=== PATIENT | female | born 1940 | race Caucasian/White ===

== ENCOUNTER → 2016-06-10 | Outpatient (CLI) | payer OTHER, BC ==
--- NOTE | 2016-06-10 11:38 | DX ---
DEXA Bone Mineral Densitometry Clinical Indications: Postmenopausal, screening for osteoporosis Comparison: June 25, 2011 Technique: Bone Mineral Densitometry (BMD) by Dual Energy X-Ray Absorptiometry (DEXA) was performed utilizing the FAMOCO scanner. The lumbar spine was evaluated in the AP projection. The bilat eral hips and forearm were evaluated in the AP projection. Vertebral fracture assessment was also pe rformed. AP Lumbar Spine: The L1, L2, L3 and L4 vertebral bodies were evaluated. BMD: 1.118 gm/cm2 T-score: -0.6 SD Z-score: 0.5 SD Significantly increased by 4.7% .This may be related to degenerative spurring in the lumbar spine. AP Left Hip: Total BMD: 0.858 gm/cm2 T-score: -1.2 SD Z-score: 0.1 SD No significant change. AP Right Hip: Total BMD: 0.833 gm/cm2 T-score: -1.4 SD Z-score: 0.1 SD Significantly decreased by 4.5% AP Left Forearm, 05/13: BMD: 0.656 gm/cm2 T-score: -2.5 SD Z-score: -0.3 SD Decreased by 6.4% Vertebral Fracture Assessment: No significant fracture deformity. Degenerative spurring in the lumba r spine likely increases lumbar BMD. Conclusion: Considering the lowest measured site, the patient is now osteoporotic in the forearm and at increased risk for fracture. The ten year FRAX risk for any major osteoporotic fracture , which excludes the risk for a wrist frac ture, is 10.5% and for a hip fracture is 2%. Since the forearm is the lowest measured site, it would be worthwhile to exclude hyperparathyroidism or a reason for disuse osteoporosis in the left upper extremity. To prevent osteoporosis and to promote the patient's bone density, the following recommendations shou ld be considered: 1. Pursue a regular regimen of weightbearing and muscle strengthening exercises in order to reduce t he risk of falls and fractures (as tolerated by the patient's general medical condition). 2. Ensure that daily dietary calcium uptake is maximized. 3. Consider checking the serum vitamin D level. Ensure that intake of vitamin D is 800 IU per day (f or ages 71 and older). 4. Consider pharmacologic intervention with follow-up DEXA scan in in one year to assess the efficac y of intervention versus follow-up DEXA scan in two years to reassess the rate of bone loss in this patient.
== END ==
LOC: FIMAGING 09:38
PROVIDERS: ATTEND Midwife
DX: Z13.820 Encounter for screening for osteoporosis (principal); M81.0 Age-related osteoporosis without current pathological fracture

== ENCOUNTER → 2016-06-26 | Outpatient (CLI) | payer OTHER, BC ==
[~2016-06-26] MED LIST: IOPAMIDOL (ISOVUE 370) 100 ML BTL IV ONE
== END ==
LOC: FIMAGING 07:41
PROVIDERS: ATTEND Internal Medicine
DX: I72.8 Aneurysm of other specified arteries (principal)
CPT/HCPCS: 74174; Q9967

== ENCOUNTER → 2016-08-06 | Outpatient (CLI) | payer OTHER, BC | LOC: FIMAGING 09:02 | PROVIDERS: ATTEND Obstetrics & Gynecology | DX: N64.4 Mastodynia (principal) | CPT/HCPCS: G0206 ==

== ENCOUNTER → 2017-02-12 | Outpatient (CLI) | payer OTHER, BC | LOC: BMCIMAGING 13:46 | PROVIDERS: ATTEND Internal Medicine | DX: M51.36 Other intervertebral disc degeneration, lumbar region (principal); M46.96 Unspecified inflammatory spondylopathy, lumbar region; I72.8 Aneurysm of other specified arteries ==

== ENCOUNTER 2017-02-14 15:56 | Emergency (ER) | payer OTHER, BC ==
[2017-02-14 16:08] VITALS: O2SAT 94
--- NOTE | 2017-02-14 16:38 | EDPHY ---
H & P Stated Complaint: slipped/mechanical fall onto L lower back > L lower back pain Source: Patient Exam Limitations: No limitations - Personal History Current Tetanus/Diphtheria Vaccine: Yes Current Tetanus Diphtheria and Acellular Pertussis (TDAP): Yes Tetanus Vaccine Date: 2010 - Medical/Surgical History Hx Asthma: No Hx Chronic Respiratory Disease: No Hx Diabetes: No Hx Cardiac Disease: No Hx Renal Disease: No Hx Cirrhosis: No Hx Alcoholism: No Hx HIV/AIDS: No Hx Splenectomy or Spleen Trauma: No Other PMH: anxiety, depression, CHI. PSH--ORTHO - Social History Smoking Status: Never smoked HPI/ROS: CHIEF COMPLAINT: Pelvic pain HISTORY OF PRESENT ILLNESS: The patient is a 76-year-old female presenting with right pelvic pain after a mechanical fall yesterday morning. She has a history of osteoporosis on Fosamax. The patient was at a work out class, she tried to get up using a roller and slipped. Since the fall, the patient has difficulty with ambulating secondary to pain. She has to use walking poles, but continues to have pain. The patient saw her PCP, Dr. Givens yesterday, he ordered x-rays of her lumbar spine. She had a massage yesterday which seemed to slightly improve her pain. She took Oxycodone yesterday which did not improve her pain. She denies further injuries. REVIEW OF SYSTEMS: A ten point review of systems was performed and is negative with the exception of the items mentioned in the HPI. Past medical history: Denies. Past surgical history: Denies. Family history: Noncontributory. Social history: , at bedside. General Appearance: Alert. Vital signs reviewed. BP 166/47. Eyes: Pupils equal and round, no conjunctival injection, no discharge. Anicteric. ENT, Mouth: Mucous membranes are moist, no oropharyngeal erythema or edema. Neck: No lymphadenopathy, supple. Respiratory: Lungs are clear to auscultation; no wheezes, rales, or rhonchi. Cardiovascular: Regular rate and rhythm; no murmur, rub, or gallop. Gastrointestinal: Abdomen is soft and nontender, no masses or organomegaly, bowel sounds normal. Skin: Warm and dry, no rashes on exposed skin, normal color. Back: Nontender to palpation over the thoracolumbar spine. No CVAT. Tender to palpation of right lumbar paraspinous muscles and buttock. Extremities: No lower extremity edema, no calf tenderness or swelling. Pelvis: Some tenderness to palpation of right anterior pelvis. Neurological: Alert and oriented. Strength is 5 over 5 BLE with testing of all major motor groups. Sensation is intact to light touch over all 4 extremities. Psychiatric: Normal affect. (Dafne Case) Constitutional: Initial Vital Signs Temperature (C) 36.5 C 02/14/17 16:05 Heart Rate 76 02/14/17 16:05 Respiratory Rate 18 02/14/17 16:05 Blood Pressure 166/47 H 02/14/17 16:05 O2 Sat (%) 94 02/14/17 16:05 O2 Delivery Mode Room Air Allergies/Adverse Reactions: Sulfa (Sulfonamide Antibiotics) Adverse Reaction (Verified 02/14/17 16:04) nausea Home Medications: Medication Instructions Recorded Abilify Unk Dose 07/08/13 Adderall Unk Dose 07/08/13 Lamictal Unk Dose 07/08/13 Zoloft Unk Dose 07/08/13 Cyclobenzaprine [Flexeril 10 MG 10 mg PO TID PRN #10 tab 02/14/17 (*)] Medical Decision Making - Diagnostics Imaging: Discussed imaging studies w/ call center recruiter Radiologist, I viewed and interpreted images myself ED Course/Re-evaluation: 1927: CT results called to me from Dr. Jara. CT pelvis without contrast due to hip pain and unable to walk. This is unremarkable CT scan. 1941: Patient was able to ambulate well with a walker. She is agreeable going home. Return precautions given. Comfortable this plan. (Mark Scales) The patient presents with right pelvic pain after a mechanical fall yesterday morning. She is able to localize her pain to a single region above the right buttock. She saw Dr. Givens yesterday and had lumbar spine x-rays. I viewed the reports of these images, degenerative changes seen, no fracture. I ordered pelvis x-rays. The patient received 400mg Ibuprofen. Pelvic x-ray does not show fracture. Re-evaluated at 5:30 p.m.. She feels slightly better but still with pain. However, when she attempts to ambulate she is unable to bear weight on her right leg. Re-evaluated lumbar spine. She has no pain with palpation over the spine. I doubt that she has a spinal vertebral fracture. Will CT scan her pelvis to look for an occult fracture. She has been offered pain medicine other than anti-inflammatories and Tylenol but has refused. She tried an oxycodone this morning and does not want to take an opiate pain medication. She might agree to tramadol. Care transferred to Dr. Scales--awaiting CT of pelvis. (Dafne Case) Differential Diagnosis: I considered a ddx of fracture (lumbar spine or pelvis/hip), musculoskeletal pain secondary to degenerative disease, HNP with radiculopathy, UTI/ pyelonephritis, ureterolithiasis, discitis. (Dafne Case) - Data Points Medications Given: Discontinued Medications Acetaminophen (Tylenol) 650 mg PO EDNOW ONE Stop: 02/14/17 17:45 Last Admin: 02/14/17 17:54 Dose: 650 mg Ibuprofen (Motrin) 400 mg PO EDNOW ONE Stop: 02/14/17 16:52 Last Admin: 02/14/17 17:11 Dose: 400 mg Departure - Departure Disposition: Home, Routine, Self-Care Clinical Impression: Pelvic pain Condition: Good Instructions: Pelvic Pain (ED) Additional Instructions: We recommend Acetaminophen (Tylenol) and Ibuprofen (Motrin,Advil) for pain control. When pain is severe, both drugs can be used at the same time, but at different intervals. Please note the time differences. Your dose is: Acetaminophen 650mg every 4 to 6 hours Ibuprofen 600mg every 6 to 8 hours with food. Note: do not take Acetaminophen with Hydrocodone (Vicodin, Lortab) or Oxycodone (Percocet). These medications also contain Acetaminophen. No more than 3000mg of Acetaminophen should be taken in 24 hours (for an adult). Referrals: Sumit Givens MD [Primary Care Provider] - As per Instructions Prescriptions: Cyclobenzaprine [Flexeril 10 MG (*)] 10 mg PO TID PRN #10 tab PRN Reason: Spasms Report Scribed for: Dafne Case Report Scribed by: Kimmy Chambers Date of Report: 02/14/17 Time of Report: 16:47 Physician Review and Approval Statement: 02/14/17 16:38 Portions of this note were transcribed by the regional medical director. I, Dr. Dafne Case, personally performed the history, physical exam, and medical decision- making; and confirmed the accuracy of the information in the transcribed note. ( Dafne Case)
[2017-02-14] MEDS ORDERED: IBUPROFEN 200 MG TAB PO ONE (16:51)
[2017-02-14] MEDS ORDERED: ACETAMINOPHEN 325 MG TAB PO ONE (17:44)
[2017-02-14 20:05] VITALS: BP 128/89; PULSE 72; RESP 15; TEMP 98.8
== END 2017-02-14 20:05 | disposition home or self-care (01) ==
DX: R10.2 Pelvic and perineal pain (principal)

== ENCOUNTER 2017-07-03 11:39 | Emergency (ER) | payer OTHER, BC ==
[2017-07-03 11:46] VITALS: RESP 16; TEMP 97.9
[2017-07-03] MEDS ORDERED: ACETAMINOPHEN 325 MG TAB PO ONE (13:07)
--- NOTE | 2017-07-03 13:12 | EDPHY ---
H & P Time Seen by Provider: 07/03/17 13:00 HPI/ROS: CHIEF COMPLAINT: Head injury HISTORY OF PRESENT ILLNESS: Slipped on ice 30 min prior to arrival outside [employer]. Hit her left side of her forehead on the ground and drove herself to the hospital. Complains of left-sided headache but no neck pain or weakness or numbness in extremities, no double vision, no vertigo. Did not have syncope or loss consciousness. Pain is all the left forehead right where she contacted the ground. Not associated with vomiting, does not radiate. Symptoms are moderate. REVIEW OF SYSTEMS: Eye: no change in vision ENT: no sore throat Cardiac: no chest pain or syncope Pulmonary: no cough or SOB Abdomen: no vomiting, diarrhea, abdominal pain Musculoskeletal: No back or neck pain Skin: Left forehead abrasion Neuro: Moderate headache Constitutional: no fever : no urinary symptoms A comprehensive 10 point review of systems is otherwise negative aside from elements mentioned in the history of present illness. PAST MEDICAL HISTORY: Anxiety depression head injury Social history: [facility] patient General Appearance: Alert and conversant, cooperative. Eyes: No scleral icterus. Pupils equal round reactive extraocular motion intact, bruising over the left forehead just above the left eyebrow. ENT, Mouth: Normal mucous membranes. Respiratory: Normal respiratory effort, breath sounds equal, lungs are clear to auscultation. Cardiovascular: Regular rate and rhythm. Gastrointestinal: Abdomen is soft and non tender. Neurological: Alert, face symmetric, normal motor and sensory in extremities. Ambulatory not ataxic Skin: Left forehead abrasion Musculoskeletal: No spinal tenderness or extremity tenderness Psychiatric: Not agitated. Emergency Department course/MDM: Ambulatory to the bathroom. Oral acetaminophen, head and cervical spine CT ordered for head trauma with age 77. Discussed head and cervical spine CT with Aiyana at 1400, clinically cleared , stable for discharge Smoking Status: Never smoked Constitutional: Initial Vital Signs Temperature (C) 36.6 C 07/03/17 11:43 Heart Rate 76 07/03/17 11:43 Respiratory Rate 16 07/03/17 11:43 Blood Pressure 132/59 H 07/03/17 11:43 O2 Sat (%) 97 07/03/17 11:43 O2 Delivery Mode Room Air Allergies/Adverse Reactions: Sulfa (Sulfonamide Antibiotics) Adverse Reaction (Verified 02/14/17 16:04) nausea Home Medications: Medication Instructions Recorded Abilify Unk Dose 07/08/13 Adderall Unk Dose 07/08/13 Lamictal Unk Dose 07/08/13 Zoloft Unk Dose 07/08/13 Aspirin 07/03/17 Medical Decision Making - Diagnostics Imaging Results: Imaging Impressions Cervical Spine CT 07/03/17 13:07 Impression: 1. No acute posttraumatic abnormality identified. If there is persistent pain or neurologic deficit, consider MRI and/or flexion and extension views if clinically indicated. 2. Multilevel degenerative change, as above. Findings discussed with Dr. Yosef Lyman on 07/03/2017 at 13:56. Head CT 07/03/17 13:07 Impression: 1. No acute intracranial findings. 2. Diffuse cerebral atrophy with periventricular and subcortical low attenuation consistent with chronic microvascular ischemic gliosis. Negative head and C-spine CT. Imaging: Discussed imaging studies w/ inbound call center representative Radiologist, I viewed and interpreted images myself Differential Diagnosis: Differential diagnosis considered for head injury including but not limited to concussion, skull fracture, intraparenchymal contusion, subarachnoid, subdural and epidural hematoma. - Data Points Medications Given: Discontinued Medications Acetaminophen (Tylenol) 650 mg PO EDNOW ONE Stop: 07/03/17 13:08 Last Admin: 07/03/17 13:29 Dose: 650 mg Departure - Departure Disposition: Home, Routine, Self-Care Clinical Impression: Contusion of forehead Qualifiers: Encounter type: initial encounter Qualified Code(s): S00.83XA - Contusion of other part of head, initial encounter Condition: Good Instructions: Head Injury (ED) Referrals: Sumit Givens MD [Primary Care Provider] - As per Instructions
[2017-07-03 14:20] VITALS: BP 135/71; PULSE 70; O2SAT 95
== END 2017-07-03 14:19 | disposition home or self-care (01) ==
DX: S00.83XA Contusion of other part of head, initial encounter (principal); W22.8XXA Striking against or struck by other objects, initial encounter

== ENCOUNTER 2017-07-15 13:05 | Emergency (ER) | payer OTHER, BC ==
--- NOTE | 2017-07-15 13:54 | EDPHY ---
H & P Stated Complaint: tripped /fell hitting l head and hip/denies loc or neck pain Time Seen by Provider: 07/15/17 13:53 HPI/ROS: HPI: This is a 77-year-old female who presents with Chief Complaint: tripped /fell hitting l head and hip/denies loc or neck pain Location: Left congregation, left hip Quality: Injury Duration: Prior to arrival Signs and Symptoms: No bleeding, no radiation, no numbness, no weakness, no tingling, no incontinence, no decreased range of motion, no swelling, + pain Timing: Acute Severity: Moderate Context: Patient was walking in the house, when she turned from 1 room to the other and tripped over her feet. was a witnessed and reports that she fell directly on her left side; hitting her left hip and the left congregation area of her head. Patient remembers the entire injury and did not lose consciousness. had to help her up off of the floor. Patient reports that she had sudden onset of moderate dizziness since hitting her head. She reports that she fell 3 weeks ago on the ice and hit her head at that time and the this time the dizziness is worse. Denies neck pain/dizziness/nausea/vomiting /amnesia/abdominal pain. Takes baby aspirin daily. Last tetanus booster given 2010. Patient urinating without difficulty. She is able to move her left leg but notes tenderness directly over the lateral aspect of her head. Patient had an MRI brain approximately 1 week ago which showed a " bruise" per patient. Modifying Factors: None Comment: ROS: see HPI Constitutional: No fever, no chills, no weight loss Eyes: No blurred vision Respiratory: No shortness of breath, no cough Cardiovascular: No chest pain Gastrointestinal: No nausea, no vomiting no diarrhea Genitourinary: No dysuria Extremities: No myalgias Neurologic: No weakness, no numbness Skin: No rashes Hematologic: No bruising, no bleeding MEDICAL/SURGICAL/SOCIAL HISTORY: Medical history: Severity, depression, chi Surgical history: Orthopedic types Social history: . Retired. CONSTITUTIONAL: Extremely pleasant adult white female, at bedside, awake and alert, no obvious distress HEENT: 4 cm contusion noted over left congregation area; and normocephalic, PERRL, EOMI. no globe entrapment, no raccoon eyes. no Alejo signs.Tympanic membranes clear. No tympanic membrane rupture. Nares patent; no septal hematoma. Oropharynx clear, no exudate and moist pink mucosa. No malocclusion. no dental trauma. Airway patent. No lymphadenopathy. NECK: supple, no midline tenderness, flexion 45 degrees, extension 45 degrees, right and left lateral flexion 45 degrees. No meningismus. Cardiovascular: Normal S1/S2, regular rate, regular rhythm, without murmur rub or gallop. PULMONARY/CHEST: Symmetrical and nontender. no crepitus. Clear to auscultation bilaterally. Good air movement. No accessory muscle usage. ABDOMEN: Soft, nondistended, nontender, no ecchymosis, no rebound, no guarding , no peritoneal signs, no masses or organomegaly. No CVAT. PELVIC: no pain with rocking; bilateral hips flexion 125 degrees, extension 30 degrees, with no pain internal rotation and no pain external rotation. BACK: No midline tenderness, no paraspinous spasm, deep tendon reflexes 2/2, no pain with straight leg raise EXTREMITIES: 2/2 pulses, leg lengths equal. Left leg externally rotated. Left HIP: Flexion extension abduction mildly decreased secondary to pain. Mild Pain with internal rotation and external rotation. Moderate tenderness over greater trochanter. Patient able to lift leg off the bed against gravity. no deformities, no clubbing, no cyanosis or edema. NEUROLOGICAL: no focal neuro deficits. GCS 15. SKIN: Warm and dry, no erythema. no rash. Good capillary refill. Source: Patient, Family () Exam Limitations: No limitations - Personal History Current Tetanus/Diphtheria Vaccine: Yes Tetanus Vaccine Date: 2010 - Medical/Surgical History Hx Asthma: No Hx Chronic Respiratory Disease: No Hx Diabetes: No Hx Cardiac Disease: No Hx Renal Disease: No Hx Cirrhosis: No Hx Alcoholism: No Hx HIV/AIDS: No Hx Splenectomy or Spleen Trauma: No Other PMH: anxiety, depression, CHI. PSH--ORTHO - Social History Smoking Status: Never smoked Constitutional: Initial Vital Signs Temperature (C) 36.4 C 07/15/17 13:09 Heart Rate 77 07/15/17 13:09 Respiratory Rate 18 07/15/17 13:09 Blood Pressure 134/110 H 07/15/17 13:09 O2 Sat (%) 96 07/15/17 13:09 O2 Delivery Mode Room Air Allergies/Adverse Reactions: Sulfa (Sulfonamide Antibiotics) Adverse Reaction (Verified 02/14/17 16:04) nausea Home Medications: Medication Instructions Recorded Abilify Unk Dose 07/08/13 Adderall Unk Dose 07/08/13 Lamictal Unk Dose 07/08/13 Zoloft Unk Dose 07/08/13 Aspirin 07/03/17 Meclizine HCl [Meclizine HCl 12.5 12.5 mg PO BID PRN #12 tab 07/15/17 mg (*)] Ondansetron Odt [Zofran Odt 4 mg 4 mg PO Q4 PRN #12 tab 07/15/17 (*)] Medical Decision Making - Diagnostics Imaging Results: Imaging Impressions Head CT 07/15/17 13:59 Impression: 1. Stable mild age-related atrophy. 2. No hemorrhage, mass effect, or definite acute peripheral infarct. 3. Stable mild to moderate nonspecific hypodensities in the white matter of bilateral cerebral hemispheres. Differential diagnosis includes microvascular ischemic disease, post-infectious/post-inflammatory sequela, atypical demyelinating disease, or migraine-related sequela. Small white matter lacunar infarcts may also have this appearance. 4. Soft tissue contusion over the left parietal bone superiorly without fracture. If symptoms worsen, additional imaging may be necessary. Findings discussed with Naheed Madrid PAC at 14:53 hour, 07/15/2017. Hip X-Ray 07/15/17 13:59 Impression: No acute abnormality seen about the pelvis with attention left hip. ED Course/Re-evaluation: Head CT scan due to age greater than 65 years old; dizziness, left hip x-ray and meclizine ordered. Fall accidental nature and witnessed. Vital signs reviewed upon arrival and stable. No neurological deficits. 1454: Called by radiologist, Dr. Izquierdo, who advised head CT scan shows no acute intracranial process; mild soft tissue swelling noted over the left temporal area. Left hip x-ray my read shows no fracture/dislocation Reassessed patient reports that dizziness has resolved and no pain in her left hip. Patient reports that she has a follow-up appointment with Dr. Givens this Thursday. No signs of neurovascular compromise/tenting of skin/compartment syndrome/ extremities and joints examined above and below area of concern and are neurovascularly intact. This patient was seen under the supervision of my secondary supervising physician. I evaluated care for this patient independently. Differential Diagnosis: Head injury including but not limited to concussion, skull fracture, intraparenchymal contusion, subarachnoid, subdural and epidural hematoma. - Data Points Medications Given: Discontinued Medications Meclizine HCl (Meclizine Hcl) 12.5 mg PO EDNOW ONE Stop: 07/15/17 14:00 Last Admin: 07/15/17 14:14 Dose: 12.5 mg Departure - Departure Disposition: Home, Routine, Self-Care Clinical Impression: Contusion of scalp, initial encounter Concussion Qualifiers: Encounter type: initial encounter Loss of consciousness presence/duration: without LOC Qualified Code(s): S06.0X0A - Concussion without loss of consciousness, initial encounter Contusion of left hip Qualifiers: Encounter type: initial encounter Qualified Code(s): S70.02XA - Contusion of left hip, initial encounter Accidental fall Qualifiers: Encounter type: initial encounter Qualified Code(s): W19.XXXA - Unspecified fall, initial encounter Condition: Good Instructions: Concussion (ED), Post Concussion Syndrome (ED), Scalp Contusion in Adults (ED), Hip Contusion (ED) Additional Instructions: Apply ice for 30 minutes at a time; 2-3 times per day for the next 1-2 days. Keep appointment with primary care provider on Thursday. Take meclizine as needed for dizziness and Zofran as needed for nausea and vomiting. Please observe concussion precautions. The x-rays obtained in the emergency department today demonstrate no evidence of an obvious fracture. Sometimes fractures are not obvious on the initial set of x-rays performed in the ED. For this reason, you should have repeat x-rays performed in 7-10 days if you are having any pain exclude the possibility of an occult fracture. Return to the ER immediately if you have progressive headaches, neurologic deficits, gait abnormality, visual disturbance, slurred speech, or any other symptom that concerns you. Referrals: Sumti Givens MD [Primary Care Provider] - 07/17/17 Prescriptions: Meclizine HCl [Meclizine HCl 12.5 mg (*)] 12.5 mg PO BID PRN #12 tab PRN Reason: Dizziness Ondansetron Odt [Zofran Odt 4 mg (*)] 4 mg PO Q4 PRN #12 tab PRN Reason: Nausea/Vomiting, Use 1st
[2017-07-15] MEDS ORDERED: MECLIZINE HCL 25 MG TAB PO ONE (13:59)
[2017-07-15 16:21] VITALS: BP 125/67; PULSE 72; RESP 16; TEMP 97.7; O2SAT 95
== END 2017-07-15 16:21 | disposition home or self-care (01) ==
DX: S06.0X0A Concussion without loss of consciousness, initial encounter (principal); S70.02XA Contusion of left hip, initial encounter; S00.03XA Contusion of scalp, initial encounter; Z79.82 Long term (current) use of aspirin; W01.198A Fall on same level from slipping, tripping and stumbling with subsequent striking against other object, initial encounter; Y92.219 Unspecified school as the place of occurrence of the external cause; Y99.8 Other external cause status; Y93.01 Activity, walking, marching and hiking

== ENCOUNTER → 2017-10-14 | Outpatient (CLI) | payer OTHER, BC | LOC: BMCIMAGING 16:09 | PROVIDERS: ATTEND Internal Medicine | DX: R91.1 Solitary pulmonary nodule (principal); R06.09 Other forms of dyspnea; R05 Cough ==

== ENCOUNTER → 2017-10-16 | Outpatient (CLI) | payer OTHER, BC | LOC: FIMAGING 14:25 | PROVIDERS: ATTEND Internal Medicine | DX: R91.1 Solitary pulmonary nodule (principal) ==

== ENCOUNTER → 2018-05-05 | Outpatient (CLI) | payer OTHER, BC | LOC: FIMAGING 07:49 | PROVIDERS: ATTEND Orthopaedic Surgery | DX: M17.11 Unilateral primary osteoarthritis, right knee (principal); M25.461 Effusion, right knee; M11.261 Other chondrocalcinosis, right knee ==

== ENCOUNTER 2018-05-26 05:50 | Inpatient (IN) | payer OTHER, BC ==
[2018-05-26] MEDS ORDERED: FAMOTIDINE 20 MG TAB PO ONE (06:04)
[2018-05-26] MEDS ORDERED: ceFAZolin 2 GM/DEXTROSE 100 ML IV ONE (06:04)
[2018-05-26] MEDS ORDERED: ACETAMINOPHEN 325 MG TAB PO ONE (06:04)
[2018-05-26] MEDS ORDERED: DEXAMETHASONE 4 MG/ML VIAL IVP ONE (06:04)
[2018-05-26] MEDS ORDERED: LR 1,000 ML IV ONE (06:08)
[2018-05-26] MEDS ORDERED: LIDOCAINE 1% 2 ML INJ ID PRN (06:08)
--- NOTE | 2018-05-26 06:24 | PDHPUP ---
History & Physical Update H&P update statement: This history and physical update is based on an assessment of the patient which was completed after admission or registration (within 24 hours), but prior to the surgery/procedure. H&P update: H&P reviewed & patient examined, no change in patient's condition since H&P completed
[2018-05-26] MEDS ORDERED: TRANEXAMIC ACID 3,000 MG/50 ML BAG IRR ONE (06:41)
--- NOTE | 2018-05-26 06:45 | PDANEPAE ---
ANE History of Present Illness right knee pain, here for R TKA ANE Past Medical History - Cardiovascular History Hx Hypertension: No Hx Arrhythmias: No Hx Chest Pain: No Hx Coronary Artery / Peripheral Vascular Disease: No Hx CHF / Valvular Disease: No Hx Palpitations: No - Pulmonary History Hx COPD: No Hx Asthma/Reactive Airway Disease: No Hx Recent Upper Respiratory Infection: No Hx Oxygen in Use at Home: No Hx Sleep Apnea: Yes Sleep Apnea Screening Result - Last Documented: Positive Pulmonary History Comment: SOB, EMMANUEL uses machine - Neurologic History Hx Cerebrovascular Accident: No Hx Seizures: No Hx Dementia: No - Endocrine History Hx Diabetes: No - Renal History Hx Renal Disorders: No - Liver History Hx Hepatic Disorders: No - Neurological & Psychiatric Hx Hx Neurological and Psychiatric Disorders: Yes Neurological / Psychiatric History Comment: essential tremor. RLS. Bipolar deressive. ADD - Cancer History Hx Cancer: No - Congenital Disorder History Hx Congenital Disorders: No - GI History Hx Gastrointestinal Disorders: No - Other Health History Other Health History: NONE - Chronic Pain History Chronic Pain: No - Surgical History Prior Surgeries: NONE IN LAST 5 YRS. LEFT SHOULDER SX ANE Review of Systems Review of Systems: - Exercise capacity METS (RN): 3 METS ANE Patient History - Allergies Allergies/Adverse Reactions: Sulfa (Sulfonamide Antibiotics) Allergy (Mild, Verified 11/28/17 19:17) nausea - Home Medications Home Medications: Alendronate Sodium [Fosamax 70 MG (*)] 70 mg PO SA@0700 11/28/17 [Last Taken ] Aspirin EC [Aspirin EC 81 mg (*)] 81 mg PO HS 11/28/17 [Last Taken 05/19/18] Calcium Carbonate/Vitamin D3 [Calcium 600-Vit D3 400 Tablet] 1 each PO BID 11/28 [Last Taken 05/19/18] Cholecalciferol Vit D3 [Vitamin D3 (*)] 1,000 units PO DAILY 11/28/17 [Last Taken 05/19/18] Cyanocobalamin [Vitamin B12 (*)] 1,000 mcg PO DAILY 11/28/17 [Last Taken ] Dextroamphetamine/Amphetamine [Adderall 30 mg Tablet] 30 mg PO DAILY 11/28/17 [ Last Taken 11/28/17] Ferrous Sulfate [Ferrous Sulf 325 MG (*)] 325 mg PO DAILY 11/28/17 [Last Taken 05/19/18] Multivitamins [Multivitamin (*)] 1 each PO DAILY 11/28/17 [Last Taken 05/19/18] [place]-3 Fatty Acids [Fish Oil 1000 mg (*)] 1,000 mg PO BID 11/28/17 [Last Taken 05/19/18] Sertraline HCl [Zoloft 100mg (*)] 100 mg PO DAILY 11/28/17 [Last Taken 05/26/18 05:00 100] lamoTRIgine [Lamictal] 200 mg PO DAILY 11/28/17 [Last Taken 05/26/18 05:00] rOPINIRole HCL [Ropinirole HCl] 0.5 mg PO HS 11/28/17 [Last Taken 05/25/18] Budesonide [Rhinocort Allergy] 2 spray NS DAILY 05/05/18 [Last Taken 05/26/18 05 :00] Fexofenadine HCl 180 mg PO DAILY 05/05/18 [Last Taken 05/25/18] Herbals/Supplements -Info Only 1 ea PO DAILY 05/05/18 [Last Taken 05/19/18] Magnesium Oxide [Magnesium Oxide 400 mg (*)] 400 mg PO DAILY 05/05/18 [Last Taken 05/19/18] Melatonin [Melatonin 5 mg] 5 mg PO HS 05/05/18 [Last Taken 05/25/18] Vayacog 1 each PO DAILY 05/05/18 [Last Taken Unknown] - NPO status NPO Since - Liquids (Date): 05/26/18 NPO Since - Liquids (Time): 05:30 NPO Since - Solids (Date): 05/25/18 NPO Since - Solids (Time): 21:00 - Smoking Hx Smoking Status: Never smoked - Family Anes Hx Family Hx Anesthesia Complications: NONE ANE Labs/Vital Signs - Vital Signs Blood Pressure: 115/64 Heart Rate: 77 Respiratory Rate: 12 O2 Sat (%): 95 Height: 158.75 cm Weight: 84.368 kg ANE Physical Exam - Airway Neck exam: FROM Mallampati Score: Class 2 Mouth exam: normal dental/mouth exam - Pulmonary Pulmonary: no respiratory distress, no rales or rhonchi - Cardiovascular Cardiovascular: regular rate and rhythym, no murmur, rub, or gallop - ASA Status ASA Status: II ANE Anesthesia Plan Anesthesia Plan: GA with mask, spinal Total IV Anesthesia: Yes
[2018-05-26] MEDS ORDERED: MIDAZOLAM 2 MG/2 ML VIAL IVP ONE (06:47)
[2018-05-26] MEDS ORDERED: BUPIVACAINE/DEXTROSE 7.5MG/ML 2 ML SPINAL AMP SP ONE (06:57)
[2018-05-26] MEDS ORDERED: LIDOCAINE 2% 100 MG/5 ML SYR ONE (06:57)
[2018-05-26] MEDS ORDERED: fentaNYL 100 MCG/2 ML INJ ONE (06:58)
[2018-05-26] MEDS ORDERED: PROPOFOL/EMULSION 500 MG/50 ML BOTTLE IV ONE (06:58)
[2018-05-26] MEDS ORDERED: PHENYLEPHRINE 10 MG/ML SDV ONE (07:05)
[2018-05-26] MEDS ORDERED: TRANEXAMIC ACID 3,000 MG in NS (SYRINGE) 50 ML IRR ONE (07:15)
[2018-05-26] MEDS ORDERED: ROPIVACAINE 0.2% 80 MG, EPINEPHrine 0.2 MG, KETOROLAC TROMETHAMINE 30 MG in SYRINGE 0 ML IU ONE (07:15)
[2018-05-26] MEDS ORDERED: PROPOFOL 200 MG/20 ML VIAL ONE ×2 (08:14→10:20)
[2018-05-26] MEDS ORDERED: MEPERIDINE 25 MG/0.5 ML AMP IVP PRN (08:28)
[2018-05-26] MEDS ORDERED: PROMETHAZINE HCL 25 MG/ML INJ IVP PRN ×2 (08:28→08:50)
[2018-05-26] MEDS ORDERED: HYDROmorphONE/DILAUDID 2 MG/ML INJ IVP PRN (08:28)
[2018-05-26] MEDS ORDERED: oxyCODONE IR 5 MG TAB PO PRN (08:28)
[2018-05-26] MEDS ORDERED: NALOXONE HCL 0.4 MG/ML INJ IVP PRN (08:28)
[2018-05-26] MEDS ORDERED: ONDANSETRON 4 MG/2 ML VIAL IVP PRN ×2 (08:28→08:50)
[2018-05-26] MEDS ORDERED: DIAZEPAM 5 MG/ML 1 ML SYR IVP PRN (08:28)
[2018-05-26] MEDS ORDERED: ACETAMINOPHEN 500 MG TAB PO PRN (08:28)
[2018-05-26] MEDS ORDERED: LR 500 ML IV PRN (08:28)
[2018-05-26] MEDS ORDERED: fentaNYL 100 MCG/2 ML INJ IVP PRN (08:28)
[2018-05-26] MEDS ORDERED: DIPHENOXYLATE/ATROPINE LOMOTIL 1 TAB PO PRN (08:50)
[2018-05-26] MEDS ORDERED: PROMETHAZINE HCL 25 MG SUPPR PR PRN (08:50)
[2018-05-26] MEDS ORDERED: ONDANSETRON DISINTEGRATING 4 MG TAB PO PRN (08:50)
[2018-05-26] MEDS ORDERED: TEMAZEPAM 15 MG CAP PO PRN (08:50)
[2018-05-26] MEDS ORDERED: METOCLOPRAMIDE 10 MG/2 ML VIAL IVP PRN (08:50)
[2018-05-26] MEDS ORDERED: POLYETHYLENE GLYCOL 3350 17 GM PKT PO PRN (08:50)
[2018-05-26] MEDS ORDERED: diphenhydrAMINE 25 MG CAP PO PRN (08:50)
[2018-05-26] MEDS ORDERED: CYCLOBENZAPRINE 10 MG TAB PO PRN (08:50)
[2018-05-26] MEDS ORDERED: LACTULOSE 20 GM/30 ML UDCUP PO PRN (08:50)
[2018-05-26] MEDS ORDERED: MAGNESIUM HYDROXIDE 30 ML UDCUP PO PRN (08:50)
[2018-05-26] MEDS ORDERED: BISACODYL 10 MG SUPP PR PRN (08:50)
--- NOTE | 2018-05-26 08:50 | POSTOPPROG ---
Post Op Note Date of Operation: 05/26/18 Surgeon: Frances Johnston [employer] T[employer] Officer: jeremie johnston PA-C and Maria C Zepeda PA-C Anesthesiologist: dr. barrett Anesthesia: Spinal, Other (Specify) (adductor canal block) Pre-op Diagnosis: right knee OA Post-op Diagnosis: same Indication: right knee pain Procedure: R TKA robot assisted Findings: severe knee OA Inf/Abcess present in the surg proc area at time of surgery?: No EBL: 50-100
[2018-05-26] MEDS ORDERED: LR 1,000 ML IV SCH (09:00)
[2018-05-26] MEDS: FERROUS SULFATE 325 MG TAB PO SCH (09:42)
[2018-05-26] MEDS: SENNOSIDES/DOCUSATE SODIUM TAB PO SCH ×2 (09:43→20:09)
[2018-05-26] MEDS: SERTRALINE HCL 100 MG TAB PO SCH (09:43)
--- NOTE | 2018-05-26 10:54 | POSTANESTH ---
Post Anesthetic Evaluation Cardiovascular Status: Normal, Stable Respiratory Status: Normal, Stable Level of Consciousness/Mental Status: Can Participate in Eval Pain Control: Adequate, Prn Tx Ordered Nausea/Vomiting Control: Adequate, Prn Tx Ordered Complications Possibly Related to Anesthesia: None Noted (moving bilat LE)
--- NOTE | 2018-05-26 11:01 | PDMN ---
Medical Necessity Medical necessity: [facility] S700 Knee Arthroplasty, Total A-2days: 77 yo s/p R TKA, admit to IP for hx TBI, bipolar, anemia, advanced age and for pain control.
[2018-05-26] MEDS: [UNRECOGNIZED DRUG - REMARK] NS SCH (12:24)
[2018-05-26] MEDS: ACETAMINOPHEN 325 MG TAB PO SCH ×2 (12:31→18:42)
[2018-05-26] MEDS: lamoTRIgine 100 MG TAB PO SCH (12:32)
[2018-05-26] MEDS: oxyCODONE IR 5 MG TAB PO PRN ×2 (12:47→15:11)
[2018-05-26] MEDS: ceFAZolin 2 GM/DEXTROSE 100 ML IV SCH ×2 (15:06→21:30)
[2018-05-26] MEDS: FAMOTIDINE 20 MG TAB PO SCH (20:09)
[2018-05-26] MEDS: ASPIRIN 81 MG CHEWABLE TAB PO SCH (20:09)
[2018-05-27] MEDS: ACETAMINOPHEN 325 MG TAB PO SCH ×2 (00:24→05:30)
[2018-05-27] MEDS: oxyCODONE IR 5 MG TAB PO PRN ×2 (02:57→08:20)
[2018-05-27 07:18] VITALS: BP 128/67
[2018-05-27] MEDS: ASPIRIN 81 MG CHEWABLE TAB PO SCH (08:26)
[2018-05-27] MEDS: SENNOSIDES/DOCUSATE SODIUM TAB PO SCH (08:26)
[2018-05-27] MEDS: lamoTRIgine 100 MG TAB PO SCH (08:26)
[2018-05-27] MEDS: FAMOTIDINE 20 MG TAB PO SCH (08:27)
[2018-05-27] MEDS ORDERED: AMPHETAMINE PO SCH (09:00)
[2018-05-27] MEDS ORDERED: DEXTROAMPHETAMINE PO SCH (09:00)
[2018-05-27] MEDS: SERTRALINE HCL 100 MG TAB PO SCH (10:48)
--- NOTE | 2018-05-27 10:57 | SOAPPROG ---
SOAP Progress Note Assessment/Plan: Assessment: Patient is doing well POD 1 s/p R TKA Pain management: pain is well controlled on oral pain meds. VTE ppx: recommend aspirin 81 mg BID for 4 weeks, cont ELENO and SCDs Anemia: level is expected initially postop. Asymptomatic. Continue to monitor D/c planning: Patient has done better than anticipated and would like to be discharged to home today. Patient must be released from PT before discharge to home. Plan: 05/27/18 10:57 Subjective: patient is doing well today, denies SOB, chest pain and N/V Objective: Vital Signs Temp Pulse Resp BP Pulse Ox 36.4 C 67 18 128/67 H 95 05/27/18 07:17 05/27/18 07:17 05/27/18 07:17 05/27/18 07:17 05/27/18 07:17 Laboratory Results 05/27/18 05:46 05/27/18 05:46 05/26/18 05/27/18 05/28/18 05:59 05:59 05:59 Intake Total 7165 Output Total 2500 100 Balance -25 -100 RLE: incision dressing is clean and dry, NVI, +pf/df ICD10 Worksheet Patient Problems: Problems Problem Status Onset Primary localized osteoarthritis of right knee Acute Dyspnea Acute
[2018-05-27] MEDS: FERROUS SULFATE 325 MG TAB PO SCH (11:04)
[2018-05-27] MEDS: [UNRECOGNIZED DRUG - REMARK] NS SCH (11:04)
--- NOTE | 2018-05-27 11:59 | ASMTLACE ---
[place] Length of stay for Answers: 2 days current admission Acuity / Level of Answers: Yes Care: Did the patient have an inpatient admission? # of Emergency department Answers: 1-2 visits in the last 6 months Score: 6 Date Signed: 05/27/2018 11:59 AM Electronically Signed By:YULI Mack
--- NOTE | 2018-05-28 17:49 | GOP ---
DATE OF OPERATION: 05/26/2018 SURGEON: Ruben Lawler MD CIGARETTE MACHINE FILLER: Roula Lawler, LAV[place] ANESTHESIA: Spinal. PREOPERATIVE DIAGNOSIS: Right knee osteoarthritis. POSTOPERATIVE DIAGNOSIS: Right knee osteoarthritis. PROCEDURE PERFORMED: Right total knee arthroplasty with computer navigation, robotic assist. FINDINGS: Severe tricompartmental osteoarthritis. ESTIMATED BLOOD LOSS: 30 cc. INDICATIONS: The patient is a 77-year-old female with severe and progressive pain and deformity of t he right knee unresponsive to conservative care. The risks and benefits of surgical intervention wer e explained in detail. DESCRIPTION OF PROCEDURE: The patient was brought to the operative room and placed on the table in t he supine position. Spinal anesthesia was induced without difficulty. A pneumatic tourniquet was appl ied about the right proximal thigh, and the leg was prepped and draped in a sterile fashion. The leg arthur was applied. After exsanguination by elevation the tourniquet was inflated to 250 mmHg. Incision was made anterior medial from the tibial tuberosity to a point cm proximal to the superior pole of the patella. Medial parapatellar arthrotomy was carried out from the superior pole of the patella and posteriorly in line with the fibers of the Type II VMO. The medial collateral liga ment was elevated and the infrapatellar fat pad was resected. The patella was everted and the articular surface was excised. A 35 mm patellar button was placed. Attention was turned first to the distal aspect of the femur. After exposure of the femur, 2 half pi ns were placed for fixation of the femoral array. In a similar fashion, 2 pins were placed anteromed ial on the tibia for fixation of the tibial array. External land marking and registration of the hip center was performed without difficulty. Internal femoral and tibial registration was carried out w ithout difficulty and the femoral and tibial checkpoints were placed and verified for accuracy. Attention was turned to the femur. The foot print for the size 3 femoral component was cut with the saw using the [employer] robotic system and verified for accuracy against the CT based plan. In a similar f ashion, the saw was used to cut the footprint for the size 4 tibial component using the [employer] system an d verified for accuracy against the CT based plan. The tibial articular surface was excised without d ifficulty, followed by the intercondylar box cut. The knee was extended and the remnants of the medial and lateral meniscus were excised. The posterior capsule was injected with ropivacaine, epinephrine and Toradol. A tibial tray was positioned. Trial reduction was then carried out. There was excellent range of motion, alignment, and stability using the 4 x 9 mm polyethylene press fit component. All trials were then removed. The joint was thoroughly irrigated and carefully dried. The components were implanted. The permanent 4 x9 mm polyethylene was placed without difficulty. The tourniquet was deflated and all bleeders were coagulated. The wound was thoroughly irrigated and closed using interrupted sutures of 2-0 Vicryl for the joint capsule. The subcu was closed with 3-0 V icryl and the skin with 4-0 Monocryl. Dermabond and Steri-Strips were applied followed by a compress rosalina dressing. The patient was then moved from the operating room to the recovery room in good conditi on, having tolerated the procedure well. /[id number]/MODL
--- NOTE | 2018-05-31 13:45 | GDS ---
ADMISSION DIAGNOSIS: Right knee osteoarthritis. DISCHARGE DIAGNOSIS: Right knee osteoarthritis. PROCEDURE: Right total knee arthroplasty, robotic assisted. VTE PROPHYLAXIS: Recommend aspirin 800 mg twice daily for 4 weeks. BRIEF DESCRIPTION OF HOSPITAL STAY: Patient was admitted for an elective joint arthroplasty. The pa teodora tolerated the procedure well and has passed physical therapy. The patient was given appropriat e antibiotic prophylaxis and venous thromboembolism prophylaxis. The patient's pain was well control led on oral pain medication, patient was holding down food, and had urinated. Decision was made to d ischarge the patient. The patient was given post-operative prescriptions pre-operatively. PLAN: Appointment scheduled in Dr. Lawler's office June 17 at 9:45 a.m. /[id number]/MODL
== END 2018-05-27 11:37 | disposition home or self-care (01) | DRG 470 ==
LOC: F3E 05:50 → F3N 10:09
PROVIDERS: ADMIT Orthopaedic Surgery; ATTEND Orthopaedic Surgery
DX: M17.11 Unilateral primary osteoarthritis, right knee (principal); G47.33 Obstructive sleep apnea (adult) (pediatric); G25.0 Essential tremor
CPT/HCPCS: 97110-GP; 97116-GP; 97161-GP; 97530-GP; J0171; J0690; J1100; J1885; J2001; J2250; J2370; J2704; J2795; J3010

== ENCOUNTER → 2018-06-24 | Outpatient (CLI) | payer OTHER, BC | LOC: FIMAGING 16:10 | PROVIDERS: ATTEND Physical Medicine & Rehabilitation Neuromuscular Medicine | DX: M79.604 Pain in right leg (principal); M79.89 Other specified soft tissue disorders ==

== ENCOUNTER → 2018-10-21 | Outpatient (CLI) | payer OTHER, BC | LOC: FIMAGING 10:34 ==

== ENCOUNTER → 2018-10-28 | Outpatient (CLI) | payer OTHER, BC | LOC: BMCIMAGING 12:04 ==

== ENCOUNTER → 2018-11-08 | Outpatient (CLI) | payer OTHER, BC | LOC: FIMAGING 15:31 ==